=== PATIENT | male | born 1965 | race Caucasian/White ===

== ENCOUNTER 2017-04-27 01:50 | Observation (INO) | payer OTHER ==
[2017-04-27] VITALS (9 sets, daily range): BP systolic 112–159; BP diastolic 60–83
[~2017-04-27] VITALS: Ht 185.4 cm; Wt 99.0 kg
--- NOTE | ~2017-04-27 | EKG ---
[address] [address] ELECTROCARDIOGRAM REPORT Name: EZ SCHAEFER Room #: 436-P [facility].#: [id number] Admission: 04/27/17 Attend Phys: Britta Catherine Discharge: Date of : 61 Report #: [id number] THIS REPORT FOR: //name// [facility] ED Test Date: 2017-04-27 Test Time: 01:51:26 Pat Name: EZ SCHAEFER Department: Room: [facility] Gender: M Regulatory Intern: [id number] : 1965 Requested By: Dominick Hermosillo Order Number: [id number] MD: William Guajardo Measurements Intervals [place] Rate: 64 P: 65 TN: 151 QRS: 19 QRSD: 106 T: 43 QT: 430 QTc: 444 Interpretive Statements Sinus rhythm Baseline wander in lead(s) V4,V6 Compared to ECG 04/24/2014 06:20:43 No significant changes Electronically Signed On 04-27-2017 22:57:05 CDT by William Guajardo [email or web address] <ELECTRONICALLY SIGNED> By: William Guajardo MD 04/27/17 [id number] William Guajardo MD /EPI
[~2017-04-27 01:50] MED LIST: ACTOS 30 MG TAB30 MG PO; ASPIRIN325 PO; BYETTA PEN 51 PENIN1 SC; CINNAMON500 MG PO; COLACE100 MG PO; DIAZEPAM 5 MG5 M1 PO; FIBER 61 EACH PO; FIBER0.52 G1 PO; FIBER625 MG PO; FIBERCON CHEWA625 MG PO; FISH OIL 1,0001 EAC5 PO; FISH OIL 1,2001 EAC3 PO; GLIPIZIDE XL10 MG PO; GLUCOTROL10 MG PO; GLUCOTROL5 MG PO; INVANZ IV; JANUVIA100 MG PO; L-ARGININE1000 MG PO; LANTUS SUBQ; LISINOPRIL10 MG PO; LOFIBRA160 MG PO; MEDROL DOSPAK21 TAB PO; MULTIVITAMINS PO; NAPROSYN PO; NORCO 5-325 TA1 EACH PO; OXYCODONE HCL 55 MG PO; PERCOCET 5-3251 EACH PO; PERCOCET 7.5-31 EACH PO; PERCOCET PO; PRAVACHOL40 MG PO; PRAVACHOL80 MG PO; ROBAXIN 750 MG750 M1 PO; TRICOR PO; VALIUM5 MG PO; ZOCOR40 MG PO
[2017-04-27 02:07] LABS: HEMATOCRIT 47.7 % (42.0-52.0); HEMOGLOBIN 16.8 gm/dL (14.0-18.0); MCH 32.9 pg (26.0-34.0); MCHC 35.1 g/dL (28.0-37.0); MCV 93.7 fL (80.0-100.0); PLATELET COUNT 295 thou/uL (150-400); RBC 5.09 mil/uL (4.50-6.00); RDW 12.5 % (10.5-14.5); WBC 8.9 thou/uL (4.0-11.0)
[2017-04-27 02:14] LABS: ANION GAP 12 mmol/L (7-16); BUN 22 mg/dL (7-18); CALCIUM 10.3 mg/dL (8.5-10.1); CHLORIDE 102 mmol/L (98-107); CO2 24 mmol/L (21-32); CREATININE 1.4 mg/dL (0.7-1.3); GLUCOSE 131 mg/dL (74-106); POTASSIUM 4.2 mmol/L (3.5-5.1); SODIUM 138 mmol/L (136-145)
[2017-04-27 02:21] LABS: MANUAL DIFF YES
[2017-04-27 02:28] LABS: NT-PRO BRAIN NAT PEPTIDE 31 pg/mL (<300); TROPONIN-I < 0.04 ng/mL (<0.04-0.07)
[2017-04-27] MEDS ORDERED: TRESIBA FL100 UNIT/1 SUBQ (02:28)
[2017-04-27 03:36] LABS: ABSOLUTE NEUTROPHILS 5.1 thou/uL (1.4-8.2); ANISOCYTOSIS SLIGHT; TOTAL CELL COUNT 100
[2017-04-27 08:22] LABS: CHOLESTEROL 195 mg/dL (<200); HDL CHOLESTEROL 26 mg/dL (>40); LDL CHOLESTEROL 127 mg/dL (<100); TC:HDL 7.5 Ratio (Not establshd); TRIGLYCERIDE 213 mg/dL (<150); VLDL 43 mg/dL (<40)
[2017-04-28 00:37] VITALS: BP 122/75
[2017-04-28 04:00] VITALS: BP 114/66
[2017-04-28 05:49] LABS: HEMATOCRIT 42.3 % (42.0-52.0); HEMOGLOBIN 14.3 gm/dL (14.0-18.0); MCH 32.4 pg (26.0-34.0); MCHC 33.8 g/dL (28.0-37.0); MCV 96.1 fL (80.0-100.0); RBC 4.4 mil/uL (4.50-6.00); RDW 12.7 % (10.5-14.5)
[2017-04-28 06:00] LABS: CALCIUM 8.8 mg/dL (8.5-10.1); CREATININE 1.2 mg/dL (0.7-1.3)
[2017-04-28 07:25] VITALS: BP 124/79
[2017-04-28 16:05] VITALS: BP 134/73
[2017-04-28 18:03] VITALS: BP 134/73
== END 2017-04-28 18:38 | disposition home or self-care (01) ==
LOC: ER 01:50 → EROBS 03:54 → 4S 03:54
PROVIDERS: Emergency Medicine; Nurse Practitioner Family
DX: R07.9 Chest pain, unspecified (principal); I10 Essential (primary) hypertension; E11.9 Type 2 diabetes mellitus without complications; E78.5 Hyperlipidemia, unspecified; N19 Unspecified kidney failure; Z72.89 Other problems related to lifestyle; Z87.891 Personal history of nicotine dependence